=== PATIENT | male | born 1965 | race Caucasian/White ===

== ENCOUNTER 2018-06-05 08:59 | Inpatient (IN) | payer OTHER ==
[2018-06-05 09:22] VITALS: BMI 36.6
--- NOTE | 2018-06-05 10:27 | HP ---
CIWA Score Nausea/Vomitin Muscle Tremors: 5 Anxiety: 3 Agitation: 0-Normal Activity Paroxysmal Sweats: No Perspiration Orientation: 2-Disoriented Date<2 days Tacttile Disturbances: 3-Moderate Itch/Numb/Burn Auditory Disturbances: 0-None Visual Disturbances: 0-None Headache: 4-Moderately Severe CIWA-Ar Total Score: 20 - Admission Criteria OASAS Guidelines: Admission for Medically Managed Detox: Requires at least one of the followin. CIWA greater than 12 2. Seizures within the past 24 hours 3. Delirium tremens within the past 24 hours 4. Hallucinations within the past 24 hours 5. Acute intervention needed for co occurring medical disorder 6. Acute intervention needed for co occurring psychiatric disorder 7. Severe withdrawal that cannot be handled at a lower level of care (continued vomiting, continued diarrhea, abnormal vital signs) requiring intravenous medication and/or fluids 8. Patient presents the following: CIWA greater than 12 Admission Criteria Met: Admission criteria met Admission ROS [facility] - HPI Allergies/Adverse Reactions: Allergies Allergy/AdvReac Type Severity Reaction Status Date / Time No Known Allergies Allergy Verified 06/05/18 10:56 History of Present Illness: patient here requesting detox from etoh use , reports 3 pints /d x 4 months , prior sobriety x 8 mo w/ rastafari assistance , prior same etoh use since age 27 . Prior detox at this facility , rehab at this facility . States that he went to [facility] yesterday , referred here , current symptoms as above . tobacco : denies PMHX : denies PSHx : denies Psych : denies Meds : denies Shx : lives w/ son , on SSI Exam Limitations: No Limitations - Ebola screening Have you traveled outside of the country in the last 21 days: No Have you had contact with anyone from an Ebola affected area: No Have you been sick,other than usual withdrawal symptoms: No Do you have a fever: No - Review of Systems Constitutional: See HPI EENT: reports: Other (reading glasses , denies dysphagia) Respiratory: reports: No Symptoms reported Cardiac: reports: No Symptoms Reported, Other (reports saw cardiology 6 mo ago in [place] , told enlarged heart , no meds) GI: reports: Nausea, Poor Appetite : reports: No Symptoms Reported Musculoskeletal: reports: No Symptoms Reported Integumentary: reports: No Symptoms Reported Neuro: reports: See HPI, Headache Endocrine: reports: No Symptoms Reported Psychiatric: reports: Orientated x3, Anxious Patient History - Patient Medical History Hx Anemia: No Hx Asthma: No Hx Chronic Obstructive Pulmonary Disease (COPD): No Hx Cancer: No Hx Cardiac Disorders: No Hx Congestive Heart Failure: No Hx Hypertension: No Hx Hypercholesterolemia: No Hx Pacemaker: No HX Cerebrovascular Accident: No Hx Seizures: No Hx Dementia: No Hx Diabetes: No Hx Gastrointestinal Disorders: No Hx Liver Disease: No Hx Genitourinary Disorders: No Hx Sexually Transmitted Disorders: No Hx Renal Disease (ESRD): No Hx Thyroid Disease: No Hx Human Immunodeficiency Virus (HIV): No Hx Hepatitis C: No Hx Depression: No Hx Suicide Attempt: No Hx Bipolar Disorder: No Hx Schizophrenia: No - Patient Surgical History Past Surgical History: No Hx Neurologic Surgery: No Hx Cataract Extraction: No Hx Cardiac Surgery: No Hx Lung Surgery: No Hx Breast Surgery: No Hx Breast Biopsy: No Hx Abdominal Surgery: No Hx Appendectomy: No Hx Cholecystectomy: No Hx Genitourinary Surgery: No Hx Section: No Hx Orthopedic Surgery: No Anesthesia Reaction: No - PPD History Date: 04/29/14 Results: 0 mm - Smoking Cessation Smoking history: Current every day smoker Have you smoked in the past 12 months: Yes Aproximately how many cigarettes per day: 2 Hx Chewing Tobacco Use: No Initiated information on smoking cessation: No - Substances Abused Alcohol--vodka/beer Route: Oral Frequency: Daily Amount used: 2-3 pts./1-6 pk. Age of first use: 27 Date of Last Use: 06/04/18 Family Disease History - Family Disease History Family Disease History: Diabetes: Mother (ALCOHOLIC), Other: Grandparent ( ALCOHOLIC, AT 97 Y/O), Father (ALCOHOLIC), Brother (ALCOHOLIC) Admission Physical Exam [facility] - Vital Signs Vital Signs: Vital Signs - 24 hr 06/05/18 09:19 Temperature 97.6 F Pulse Rate 99 H Respiratory 18 Rate Blood Pressure 154/76 - Physical General Appearance: Yes: Moderate Distress, Tremorous, Anxious HEENTM: Yes: EOMI, Normocephalic, Normal Voice, Pharynx Normal, Other (poor dentition) Respiratory: Yes: Chest Non-Tender, Lungs Clear, Normal Breath Sounds Neck: Yes: No masses,lesions,Nodules, Trachea in good position Breast: Yes: Breast Exam Deferred Cardiology: Yes: Regular Rhythm, Regular Rate, S1, S2, Murmur (3/6 left intercostal d/w pt agreeable to f/up upon d/ c from this facility , denies current symptoms), Tachycardia, Diastolic Murmur Abdominal: Yes: Normal Bowel Sounds, Non Tender, Soft, Protuberent Genitourinary: Yes: Within Normal Limits Back: Yes: Normal Inspection Musculoskeletal: Yes: full range of Motion Extremities: Yes: Normal Capillary Refill, Non-Tender, Tremors Neurological: Yes: Alert, Motor Strength 5/5, Normal Mood/Affect Integumentary: Yes: Normal Color, Dry, Warm - Diagnostic (1) Alcohol dependence Current Visit: No Status: Chronic Qualifiers: Substance use status: in withdrawal [facility] Breath Alcohol Content Breath Alcohol Content: 0.057 Urine Drug Screen - Results Drug Screen Negative: No Urine Drug Screen Results: BZO-Benzodiazepines
[2018-06-05] MEDS ORDERED: MAG HYDROX/AL HYDROX/SIMETH 30 ML UNIT-DOSE CUP PO PRN (10:30)
[2018-06-05] MEDS ORDERED: IBUPROFEN 400 MG TABLET (FP) PO PRN (10:30)
[2018-06-05] MEDS ORDERED: MAGNESIUM CITRATE 300 ML BOTTLE PO PRN (10:30)
[2018-06-05] MEDS ORDERED: guaiFENesin/D-METHORPHAN HB 10 ML UNIT-DOSE CUPS PO PRN (10:30)
[2018-06-05] MEDS ORDERED: chlordiazePOXIDE HCL 25 MG CAPSULE PO PRN (10:30)
[2018-06-05] MEDS ORDERED: P-EPHED 60MG/TRIPROLIDI 2.5MG TABLET PO PRN (10:30)
[2018-06-05] MEDS ORDERED: MENTHOL/PHENOL 1 EACH UD MM PRN (10:30)
[2018-06-05] MEDS ORDERED: MAGNESIUM HYDROX 2400MG/30ML ORAL SUSPENSION 30 ML CUP PO PRN (10:30)
[2018-06-05] MEDS: chlordiazePOXIDE HCL 25 MG CAPSULE PO SCH ×2 (12:33→17:42)
[2018-06-05] MEDS: ACETAMINOPHEN 325 MG TABLET (FP) PO PRN (17:42)
[2018-06-06] MEDS: chlordiazePOXIDE HCL 25 MG CAPSULE PO SCH ×5 (00:27→21:59)
[2018-06-06] MEDS: THIAMINE HCL 100 MG TABLET (FP) PO SCH ×2 (00:27→21:59)
[2018-06-06] MEDS: PRENATAL VITAMINS W/ FOLIC ACID TABLET (FP) PO SCH (10:22)
[2018-06-06 10:54] LABS: ALBUMIN 3.6 g/dl (3.4-5.0); ALK PHOS 94 U/L (45-117); ANION GAP 11 MMOL/L (8-16); BILIRUBIN,TOTAL 0.5 mg/dL (0.2-1); BLOOD UREA NITROGEN 9 mg/dL (7-18); CALCIUM 8.3 mg/dL (8.5-10.1); CHLORIDE 105 mmol/L (98-107); CO2 25 mmol/L (21-32); CREATININE 0.7 mg/dL (0.55-1.3); GLUCOSE,RANDOM 75 mg/dL (74-106); POTASSIUM 3.9 mmol/L (3.5-5.1); SGOT/AST 163 U/L (15-37); SGPT/ALT 89 U/L (13-61); SODIUM 140 mmol/L (136-145)
[2018-06-06 11:10] LABS: HEMATOCRIT 28.1 % (35.4-49); MCHC 28.5 g/dl (32.0-35.9); MEAN CELL VOLUME 69.9 fl (80-96); MEAN PLT VOLUME 9.1 fl (7.5-11.1); PLATELET COUNT 230 K/MM3 (134-434); RBC 4.03 M/mm3 (4.00-5.60); RDW 21.9 % (11.9-15.9); WHITE BLOOD COUNT 6.3 K/mm3 (4.0-10.0)
[2018-06-06 11:14] LABS: MCH 19.9 pg (25.7-33.7)
[2018-06-06] MEDS: ACETAMINOPHEN 325 MG TABLET (FP) PO PRN (17:38)
--- NOTE | 2018-06-06 17:45 | PN ---
S CIWA - CIWA Score Nausea/Vomitin Muscle Tremors: 3 Anxiety: 3 Agitation: 2 Paroxysmal Sweats: 3 Orientation: 0-Oriented Tacttile Disturbances: 0-None Auditory Disturbances: 0-None Visual Disturbances: 0-None Headache: 0-None Present CIWA-Ar Total Score: 14 S Progress Note (SOAP) Subjective: Nausea shakes Objective: 06/06/18 17:44 A & O x 3 steady gait anxious Vital Signs Temperature 99.3 F 06/06/18 17:09 Pulse Rate 95 H 06/06/18 17:09 Respiratory Rate 16 06/06/18 17:09 Blood Pressure 131/79 06/06/18 17:09 O2 Sat by Pulse Oximetry (%) Laboratory Last Values WBC 6.3 K/mm3 (4.0-10.0) 06/06/18 05:40 RBC 4.03 M/mm3 (4.00-5.60) 06/06/18 05:40 Hgb 8.0 GM/dL (11.7-16.9) L 06/06/18 05:40 Hct 28.1 % (35.4-49) L D 06/06/18 05:40 MCV 69.9 fl (80-96) L 06/06/18 05:40 MCH 19.9 pg (25.7-33.7) L D 06/06/18 05:40 MCHC 28.5 g/dl (32.0-35.9) L 06/06/18 05:40 RDW 21.9 % (11.9-15.9) H 06/06/18 05:40 Plt Count 230 K/MM3 (134-434) 06/06/18 05:40 MPV 9.1 fl (7.5-11.1) 06/06/18 05:40 Sodium 140 mmol/L (136-145) 06/06/18 05:40 Potassium 3.9 mmol/L (3.5-5.1) 06/06/18 05:40 Chloride 105 mmol/L (98-107) 06/06/18 05:40 Carbon Dioxide 25 mmol/L (21-32) 06/06/18 05:40 Anion Gap 11 MMOL/L (8-16) 06/06/18 05:40 BUN 9 mg/dL (7-18) 06/06/18 05:40 Creatinine 0.7 mg/dL (0.55-1.3) 06/06/18 05:40 Creat Clearance w eGFR > 60 (>60) 06/06/18 05:40 Random Glucose 75 mg/dL (74-106) 06/06/18 05:40 Calcium 8.3 mg/dL (8.5-10.1) L 06/06/18 05:40 Total Bilirubin 0.5 mg/dL (0.2-1) 06/06/18 05:40 AST 163 U/L (15-37) H 06/06/18 05:40 ALT 89 U/L (13-61) H 06/06/18 05:40 Alkaline Phosphatase 94 U/L (45-117) 06/06/18 05:40 Total Protein 7.0 g/dl (6.4-8.2) 06/06/18 05:40 Albumin 3.6 g/dl (3.4-5.0) 06/06/18 05:40 labs noted low H & H Assessment: 06/06/18 17:45 withdrawal sx Plan: continue detox increase hydration Feosol
[2018-06-06] MEDS: MELATONIN 5 MG TABLETS PO PRN (21:48)
[2018-06-07] MEDS: chlordiazePOXIDE HCL 25 MG CAPSULE PO SCH (05:37)
[2018-06-07] MEDS: FERROUS SO4 325 MG TABLET (FP) PO SCH ×2 (08:57→17:53)
[2018-06-07] MEDS: chlordiazePOXIDE 5 MG CAPSULE PO SCH ×3 (10:13→22:38)
[2018-06-07] MEDS: PRENATAL VITAMINS W/ FOLIC ACID TABLET (FP) PO SCH (10:13)
--- NOTE | 2018-06-07 13:03 | PN ---
S CIWA - CIWA Score Nausea/Vomitin-No Nausea/No Vomiting Muscle Tremors: 3 Anxiety: 1-Mildly Anxious Agitation: 2 Paroxysmal Sweats: 1-Minimal Palms Moist Orientation: 1-Uncertain about Date Tacttile Disturbances: 0-None Auditory Disturbances: 0-None Visual Disturbances: 0-None Headache: 2-Mild CIWA-Ar Total Score: 10 S Progress Note (SOAP) Subjective: anxiety tremor sweating Objective: 06/07/18 13:01 Vital Signs Temperature 98.2 F 06/07/18 09:43 Pulse Rate 100 H 06/07/18 09:43 Respiratory Rate 18 06/07/18 09:43 Blood Pressure 132/91 06/07/18 09:43 O2 Sat by Pulse Oximetry (%) Laboratory Last Values WBC 6.3 K/mm3 (4.0-10.0) 06/06/18 05:40 RBC 4.03 M/mm3 (4.00-5.60) 06/06/18 05:40 Hgb 8.0 GM/dL (11.7-16.9) L 06/06/18 05:40 Hct 28.1 % (35.4-49) L D 06/06/18 05:40 MCV 69.9 fl (80-96) L 06/06/18 05:40 MCH 19.9 pg (25.7-33.7) L D 06/06/18 05:40 MCHC 28.5 g/dl (32.0-35.9) L 06/06/18 05:40 RDW 21.9 % (11.9-15.9) H 06/06/18 05:40 Plt Count 230 K/MM3 (134-434) 06/06/18 05:40 MPV 9.1 fl (7.5-11.1) 06/06/18 05:40 Sodium 140 mmol/L (136-145) 06/06/18 05:40 Potassium 3.9 mmol/L (3.5-5.1) 06/06/18 05:40 Chloride 105 mmol/L (98-107) 06/06/18 05:40 Carbon Dioxide 25 mmol/L (21-32) 06/06/18 05:40 Anion Gap 11 MMOL/L (8-16) 06/06/18 05:40 BUN 9 mg/dL (7-18) 06/06/18 05:40 Creatinine 0.7 mg/dL (0.55-1.3) 06/06/18 05:40 Creat Clearance w eGFR > 60 (>60) 06/06/18 05:40 Random Glucose 75 mg/dL (74-106) 06/06/18 05:40 Calcium 8.3 mg/dL (8.5-10.1) L 06/06/18 05:40 Total Bilirubin 0.5 mg/dL (0.2-1) 06/06/18 05:40 AST 163 U/L (15-37) H 06/06/18 05:40 ALT 89 U/L (13-61) H 06/06/18 05:40 Alkaline Phosphatase 94 U/L (45-117) 06/06/18 05:40 Total Protein 7.0 g/dl (6.4-8.2) 06/06/18 05:40 Albumin 3.6 g/dl (3.4-5.0) 06/06/18 05:40 RPR Titer Nonreactive (NONREACTIVE) 06/06/18 05:40 lab noted low hgb Assessment: 06/07/18 13:02 alcohol and benzo withdrawal sx 06/07/18 13:03 anemia Plan: continue detox ferrous sulfate
[2018-06-07] MEDS: THIAMINE HCL 100 MG TABLET (FP) PO SCH (22:38)
[2018-06-08] MEDS: chlordiazePOXIDE 5 MG CAPSULE PO SCH (06:29)
[2018-06-08] MEDS: FERROUS SO4 325 MG TABLET (FP) PO SCH ×2 (07:06→17:37)
[2018-06-08] MEDS: PRENATAL VITAMINS W/ FOLIC ACID TABLET (FP) PO SCH (10:10)
[2018-06-08] MEDS: chlordiazePOXIDE HCL 10 MG CAPSULE PO SCH ×3 (10:11→22:10)
[2018-06-08] MEDS ORDERED: ONDANSETRON *ODT* 4 MG TABLET SL PRN (10:33)
--- NOTE | 2018-06-08 15:24 | PN ---
[facility] Progress Note (SOAP) Subjective: Tremors. Patient Reports Pain (Localized) in Lower Heel area of Left Ankle X Last 1-2 days. Patient denies history of recent fall / traumatic injury to affected area. Objective: PATIENT A & O X 2 (UNCERTAIN ABOUT CURRENT DAY / DATE). PATIENT OBSERVED AMBULATING ON UNIT. IN NO ACUTE DISTRESS. SLIGHT SWELLING NOTED IN AREA OF LEFT HEEL (ON SOLE OF FOOT). NO ERYTHEMA, WOUNDS, OR UNUSUAL DISCHARGE NOTED AT AFFECTED SITE OR ON ANY OTHER PART OF LEFT LOWER LEG OR FOOT. 06/08/18 15:20 Vital Signs Temperature 96.6 F L 06/08/18 13:27 Pulse Rate 91 H 06/08/18 13:27 Respiratory Rate 18 06/08/18 13:27 Blood Pressure 110/74 06/08/18 13:27 O2 Sat by Pulse Oximetry (%) Laboratory Tests 06/06/18 06/06/18 06/06/18 05:40 05:40 05:40 WBC 6.3 RBC 4.03 Hgb 8.0 L Hct 28.1 L D MCV 69.9 L MCH 19.9 L D MCHC 28.5 L RDW 21.9 H Plt Count 230 MPV 9.1 Sodium 140 Potassium 3.9 Chloride 105 Carbon Dioxide 25 Anion Gap 11 BUN 9 Creatinine 0.7 Creat Clearance w eGFR > 60 Random Glucose 75 Calcium 8.3 L Total Bilirubin 0.5 AST 163 H ALT 89 H Alkaline Phosphatase 94 Total Protein 7.0 Albumin 3.6 RPR Titer Nonreactive LABS NOTED. 06/08/18 15:21 Assessment: 06/08/18 15:23 WITHDRAWAL SYMPTOMS. MICROCYTIC ANEMIA. LEFT HEEL PAIN. 06/08/18 15:25 Plan: CONTINUE DETOX. NAPROXEN BID FOR HEEL PAIN. X-RAY OF LEFT FOOT / ANKLE ORDERED. RESULTS PENDING.
--- NOTE | 2018-06-08 16:56 | PN ---
[facility] Progress Note Note: PATIENT SCHEDULED TO LEAVE TOMORROW @ 0630 TO GET TO [facility] ( [place], [place]) FOR AFTERCARE. AT THIS TIME, REPORT FOR X-RAY OF LEFT ANKLE NOT YET AVAILABLE. PATIENT ADVISED TO INQUIRE LATER ON IN EVENING TO SPEAK TO COVERING MEDICAL PROVIDER TO SEE IF REPORT IS AVAILABLE AT THAT TIME. IF REPORT NOT AVAILABLE PRIOR TO DISCHARGE TOMORROW AM, PATIENT ADVISED TO FOLLOW-UP WITH MEDICAL PROVIDER AT [facility] (IF POSSIBLE) OR ELSE FOLLOW-UP WITH TUMBLER TENDER FOR FURTHER EVALUATION WHEN POSSIBLE. PRESCRIPTION FOR FEOSOL, 325 MG BIDWM SENT TO [facility] ([address], [place]) FOR PATIENT TO TAKE FOR AFTERCARE ( MICROCYTIC ANEMIA NOTED ON DETOX ADMISSION LABS). PATIENT ALSO ADVISED TO FOLLOW -UP WITH TUMBLER TENDER FOR FURTHER EVALUATION OF THIS CONDITION WHEN POSSIBLE. PATIENT VERBALIZED UNDERSTANDING OF ALL RECOMMENDATIONS. COPIES OF ALL LABS DRAWN WHILE ADMITTED FOR DETOX GIVEN TO PATIENT TO TAKE WITH HIM AT TIME OF DISCHARGE FOR FOLLOW-UP. Page WESTON NP
[2018-06-08] MEDS: ACETAMINOPHEN 325 MG TABLET (FP) PO PRN (17:38)
[2018-06-08] MEDS ORDERED: NAPROXEN 375 MG TABLET (FP) PO SCH (22:00)
[2018-06-08] MEDS: MELATONIN 5 MG TABLETS PO PRN (22:10)
[2018-06-08] MEDS: THIAMINE HCL 100 MG TABLET (FP) PO SCH (22:10)
[2018-06-08 22:15] VITALS: BP 132/86; PULSE 80; TEMP 97.9
[2018-06-09] MEDS: chlordiazePOXIDE HCL 10 MG CAPSULE PO SCH (06:09)
== END 2018-06-09 06:30 | disposition home or self-care (01) | DRG 897 ==
LOC: YASAS 08:59 → Y6N 11:27
PROC: HZ2ZZZZ Detoxification Services for Substance Abuse Treatment (ICD-10-PCS; principal; 2018-06-05)
DX: F10.230 Alcohol dependence with withdrawal, uncomplicated (principal); F13.230 Sedative, hypnotic or anxiolytic dependence with withdrawal, uncomplicated; F17.210 Nicotine dependence, cigarettes, uncomplicated; D64.9 Anemia, unspecified; M79.672 Pain in left foot
CPT/HCPCS: 36415; 73630-TC-LT; 80053; 85027; 86593

== ENCOUNTER 2019-06-04 16:40 | Inpatient (IN) | payer OTHER ==
[2019-06-04 18:46] VITALS: BMI 33.9
--- NOTE | 2019-06-04 20:00 | HP ---
CIWA Score Nausea/Vomitin-No Nausea/No Vomiting Muscle Tremors: 4-Moderate,w/Arms Extend Anxiety: 3 Agitation: 0-Normal Activity Paroxysmal Sweats: No Perspiration Orientation: 0-Oriented Tacttile Disturbances: 0-None Auditory Disturbances: 0-None Visual Disturbances: 0-None Headache: 0-None Present CIWA-Ar Total Score: 7 - Admission Criteria OASAS Guidelines: Admission for Medically Managed Detox: Requires at least one of the followin. CIWA greater than 12 2. Seizures within the past 24 hours 3. Delirium tremens within the past 24 hours 4. Hallucinations within the past 24 hours 5. Acute intervention needed for co occurring medical disorder 6. Acute intervention needed for co occurring psychiatric disorder 7. Severe withdrawal that cannot be handled at a lower level of care (continued vomiting, continued diarrhea, abnormal vital signs) requiring intravenous medication and/or fluids 8. Patient presents the following: Acute intervention needed for co-occurring med or psych disorder (transferred from [facility] afterbeing stablized for alcohol use with alcohol-nduced psychotic isorder with hallucinations) Admission Criteria Met: Admission criteria met Admitting History and Physical - Smoking History Smoking history: Current every day smoker Have you smoked in the past 12 months: Yes Aproximately how many cigarettes per day: 2 - Alcohol/Substance Use Hx Alcohol Use: Yes Admission ROS S - HPI Chief Complaint: Seeking admission to detox from alcohol Allergies/Adverse Reactions: Allergies Allergy/AdvReac Type Severity Reaction Status Date / Time No Known Allergies Allergy Verified 06/04/19 18:40 History of Present Illness: 54 years old male with a long history of alcohol dependence is seeking admission to detox. Patient denies medical history and reports psych. history of schizophrenia and alcohol induced psychotic disorder with hallucinations as per discharge instruction from [facility]. Patient was stabilized and transferred from [facility]. Patient's last admission to [facility] was for the period 05/26/2009. He reports that his last admission was at [facility]. He is unemployed and lives with his son. Exam Limitations: No Limitations - Ebola screening Have you traveled outside of the country in the last 21 days: No Have you had contact with anyone from an Ebola affected area: No Do you have a fever: No - Review of Systems Constitutional: Malaise EENT: reports: Nose Congestion Respiratory: reports: No Symptoms reported Cardiac: reports: No Symptoms Reported GI: reports: Nausea, Poor Fluid Intake, Abdominal cramping : reports: No Symptoms Reported Musculoskeletal: reports: No Symptoms Reported Integumentary: reports: Dryness, Flushing Neuro: reports: Tremors Endocrine: reports: No Symptoms Reported Hematology: reports: No Symptoms Reported Psychiatric: reports: Orientated x3, Anxious Other Systems: Reviewed and Negative Patient History - Patient Medical History Hx Anemia: No Hx Asthma: No Hx Chronic Obstructive Pulmonary Disease (COPD): No Hx Cancer: No Hx Cardiac Disorders: No Hx Congestive Heart Failure: No Hx Hypertension: No Hx Hypercholesterolemia: No Hx Pacemaker: No HX Cerebrovascular Accident: No Hx Seizures: No Hx Dementia: No Hx Diabetes: No Hx Gastrointestinal Disorders: No Hx Liver Disease: No Hx Genitourinary Disorders: No Hx Sexually Transmitted Disorders: No Hx Renal Disease (ESRD): No Hx Thyroid Disease: No Hx Human Immunodeficiency Virus (HIV): No (Negative 2018) Hx Hepatitis C: No Hx Depression: Yes Hx Suicide Attempt: No (Denies suicidal ideation at thi time) Hx Bipolar Disorder: No Hx Schizophrenia: Yes - Patient Surgical History Past Surgical History: No Hx Neurologic Surgery: No Hx Cataract Extraction: No Hx Cardiac Surgery: No Hx Lung Surgery: No Hx Abdominal Surgery: No Hx Appendectomy: No Hx Cholecystectomy: No Hx Genitourinary Surgery: No Hx Orthopedic Surgery: No Anesthesia Reaction: No - PPD History Previous Implant?: Yes Documented Results: Negative w/proof Implanted On Prior [facility] Admission?: Yes Date: 04/29/14 Results: 0 mm PPD to be Administered?: Yes - Reproductive History Patient is a Female of Child Bearing Age (11 -55 yrs old): No (male) - Smoking Cessation Smoking history: Current every day smoker Have you smoked in the past 12 months: Yes Aproximately how many cigarettes per day: 2 Hx Chewing Tobacco Use: No Initiated information on smoking cessation: Yes 'Breaking Loose' booklet given: 06/04/19 Admission Physical Exam [facility] - Vital Signs Vital Signs: Vital Signs - 24 hr 06/04/19 18:39 Temperature 99.9 F H Pulse Rate 88 Respiratory 20 Rate Blood Pressure 146/84 - Physical General Appearance: Yes: Mild Distress, Tremorous HEENTM: Yes: Within Normal Limits Respiratory: Yes: Lungs Clear, Normal Breath Sounds, No Respiratory Distress Neck: Yes: Supple Breast: Yes: Breast Exam Deferred Cardiology: Yes: Regular Rhythm, Regular Rate Abdominal: Yes: Normal Bowel Sounds, Soft Back: Yes: Normal Inspection Musculoskeletal: Yes: Within Normal Limits Extremities: Yes: Tremors Neurological: Yes: Within Normal Limits Integumentary: Yes: Warm Lymphatic: Yes: Within Normal Limits - Diagnostic (1) Alcohol dependence with withdrawal, unspecified Current Visit: Yes Status: Acute Qualifiers: Complication of substance-induced condition: with perceptual disturbance Qualified Code(s): F10.232 - Alcohol dependence with withdrawal with perceptual disturbance (2) Nicotine dependence Current Visit: Yes Status: Chronic Qualifiers: Nicotine product type: cigarettes Substance use status: uncomplicated Qualified Code(s): F17.210 - Nicotine dependence, cigarettes, uncomplicated Cleared for Admission S - Detox or Rehab [facility] Level of Care: Medically Managed Detox Regimen/Protocol: Librium Claeared for Rehab Admission: No Breathalyzer - Breathalyzer Breathalyzer: 0 Urine Drug Screen - Test Device Lot number: [id number] Expiration date: 12/22/20 - Control Is test valid?: Yes - Results Drug screen NEGATIVE: No Urine drug screen results: BZO-Benzodiazepines Inpatient Rehab Admission - Rehab Decision to Admit Inpatient rehab admission?: No
[2019-06-04] MEDS ORDERED: NICOTINE POLACRILEX 2 MG GUM BUC PRN (20:19)
[2019-06-04] MEDS ORDERED: MAGNESIUM HYDROX 2400MG/30ML ORAL SUSPENSION 30 ML CUP PO PRN (20:19)
[2019-06-04] MEDS ORDERED: IBUPROFEN 400 MG TABLET (FP) PO PRN (20:19)
[2019-06-04] MEDS ORDERED: chlordiazePOXIDE HCL 10 MG CAPSULE PO PRN (20:19)
[2019-06-04] MEDS ORDERED: MENTHOL/PHENOL 1 EACH UD MM PRN (20:19)
[2019-06-04] MEDS ORDERED: METHOCARBAMOL 500 MG TABLET PO PRN (20:19)
[2019-06-04] MEDS ORDERED: BISMUTH SUBSALICYLATE 524 MG/30 ML UD PO PRN (20:19)
[2019-06-04] MEDS ORDERED: hydrOXYzine PAMOATE 25 MG CAPSULE (FP) PO PRN (20:19)
[2019-06-04] MEDS ORDERED: ACETAMINOPHEN 325 MG TABLET (FP) PO PRN ×2 (20:19)
[2019-06-04] MEDS ORDERED: MAGNESIUM CITRATE 300 ML BOTTLE PO PRN (20:19)
[2019-06-04] MEDS ORDERED: MAG HYDROX/AL HYDROX/SIMETH 30 ML UNIT-DOSE CUP PO PRN (20:19)
[2019-06-04] MEDS: THIAMINE HCL 100 MG TABLET (FP) PO SCH (22:21)
[2019-06-04] MEDS: chlordiazePOXIDE HCL 25 MG CAPSULE PO SCH (22:23)
[2019-06-04] MEDS: MELATONIN 5 MG TABLETS PO PRN (22:24)
[2019-06-05] MEDS: chlordiazePOXIDE HCL 25 MG CAPSULE PO SCH ×3 (06:17→22:08)
--- NOTE | 2019-06-05 09:01 | EKG ---
Test Reason : Blood Pressure : / mmHG Vent. Rate : 076 BPM Atrial Rate : 076 BPM P-R Int : 168 ms QRS Dur : 074 ms QT Int : 392 ms P-R-T Axes : 043 019 027 degrees QTc Int : 441 ms POOR DATA QUALITY, INTERPRETATION MAY BE ADVERSELY AFFECTED NORMAL SINUS RHYTHM NORMAL ECG NO PREVIOUS ECGS AVAILABLE Confirmed by VERNA HUDSON MD ([id number]) on 06/05/2019 9:00:43 AM Referred By: Confirmed By:VERNA HUDSON MD
[2019-06-05 09:54] LABS: HEMATOCRIT 38.4 % (35.4-49); HEMOGLOBIN 12.4 GM/dL (11.7-16.9); MCH 31.5 pg (25.7-33.7); MCHC 32.4 g/dl (32.0-35.9); MEAN CELL VOLUME 97.2 fl (80-96); PLATELET COUNT 234 K/MM3 (134-434); RBC 3.95 M/mm3 (4.00-5.60); RDW 14.6 % (11.9-15.9); WHITE BLOOD COUNT 9.3 K/mm3 (4.0-10.0)
[2019-06-05 10:05] LABS: ALBUMIN 3.1 g/dl (3.4-5.0); BILIRUBIN,TOTAL 0.8 mg/dL (0.2-1); BLOOD UREA NITROGEN 15.5 mg/dL (7-18); CALCIUM 8.6 mg/dL (8.5-10.1); CREATININE 0.8 mg/dL (0.55-1.3); POTASSIUM 3.5 mmol/L (3.5-5.1); TOT PROT 6.5 g/dl (6.4-8.2)
[2019-06-05] MEDS: PRENATAL VITAMINS W/ FOLIC ACID TABLET (FP) PO SCH (10:10)
[2019-06-05] MEDS: NICOTINE 14 MG/24 HOURS TOPICAL PATCH TD SCH (10:10)
--- NOTE | 2019-06-05 10:15 | PN ---
S CIWA - CIWA Score Nausea/Vomitin-No Nausea/No Vomiting Muscle Tremors: 3 Anxiety: 3 Agitation: 0-Normal Activity Paroxysmal Sweats: 3 Orientation: 0-Oriented Tacttile Disturbances: 0-None Auditory Disturbances: 0-None Visual Disturbances: 0-None Headache: 2-Mild CIWA-Ar Total Score: 11 B[facility] Progress Note (SOAP) Subjective: c/o shakes, sweats, anxiety, and headache. Objective: 06/05/19 10:14 Vital Signs 06/05/19 06/05/19 06/05/19 04:00 06:37 09:26 Temperature 97.6 F 98.2 F Pulse Rate 69 112 H Respiratory 18 18 18 Rate Blood Pressure 145/88 137/82 Lab Results WBC 9.3 K/mm3 (4.0-10.0) 06/05/19 07:15 RBC 3.95 M/mm3 (4.00-5.60) L 06/05/19 07:15 Hgb 12.4 GM/dL (11.7-16.9) 06/05/19 07:15 Hct 38.4 % (35.4-49) D 06/05/19 07:15 MCV 97.2 fl (80-96) H 06/05/19 07:15 MCHC 32.4 g/dl (32.0-35.9) 06/05/19 07:15 RDW 14.6 % (11.9-15.9) D 06/05/19 07:15 Plt Count 234 K/MM3 (134-434) 06/05/19 07:15 Sodium 140 mmol/L (136-145) 06/05/19 07:15 Potassium 3.5 mmol/L (3.5-5.1) 06/05/19 07:15 Chloride 104 mmol/L (98-107) 06/05/19 07:15 Carbon Dioxide 31 mmol/L (21-32) 06/05/19 07:15 Anion Gap 5 MMOL/L (8-16) L 06/05/19 07:15 BUN 15.5 mg/dL (7-18) 06/05/19 07:15 Creatinine 0.8 mg/dL (0.55-1.3) 06/05/19 07:15 Random Glucose 79 mg/dL (74-106) 06/05/19 07:15 Calcium 8.6 mg/dL (8.5-10.1) 06/05/19 07:15 Labs noted. Assessment: 06/05/19 10:15 AOX3, in no acute respiratory distress. Full ROM, ambulating in the unit. Withdrawal symptoms. Plan: continue detox.
--- NOTE | 2019-06-05 11:26 | EKG ---
Test Reason : Blood Pressure : / mmHG Vent. Rate : 074 BPM Atrial Rate : 074 BPM P-R Int : 150 ms QRS Dur : 088 ms QT Int : 386 ms P-R-T Axes : 054 029 018 degrees QTc Int : 428 ms NORMAL SINUS RHYTHM NORMAL ECG WHEN COMPARED WITH ECG OF 04-JUN-2019 20:47, NO SIGNIFICANT CHANGE WAS FOUND Confirmed by VERNA HUDSON MD ([id number]) on 06/05/2019 11:25:43 AM Referred By: Confirmed By:VERNA HUDSON MD
--- NOTE | 2019-06-05 11:29 | CONSULT ---
[facility] Psychiatric Consult - Data Date of interview: 06/05/19 Admission source: [facility] Identifying data: Patient is a 54 year old single [place] male, father of two, unemployed, domiciled (resides with his oldest son), and is supported by [facility]. This is one of multiple admissions for patient. Patient admitted to for alcohol dependence. Substance Abuse History: History of alcohol dependence. Medical History: denies. Psychiatric History: Patient's first psychiatric contact was approximately six years ago after he was admitted to [facility] for two months after reporting auditory and visual hallucinations secondary to alcohol dependence. Mr. Nguyen reports history of seeing multiple outpatient psychiatric providers in the [place] but admits to noncompliance with medications. Patient only recalls the medication zoloft although states that he has been prescribed several medications. States that he has history of experiencing psychotic symptoms (AH, VH) due to his alcohol abuse but has been diagnosed with schizophrenia in the past. Mr. Nguyen was discharged from [facility] on 06/03/19 and diagnosed with alcohol induced psychotic disorder with hallucinations (paperwork from [facility] reviewed). He denies history of suicide attempt. At present he denies auditory/visual hallucinations. No psychosis noted. Patient not interested in accepting psychotropic medications. Physical/Sexual Abuse/Trauma History: denies. Mental Status Exam - Mental Status Exam Alert and Oriented to: Time, Place, Person Cognitive Function: Good Patient Appearance: Well Groomed Mood: Withdrawn Affect: Mood Congruent Patient Behavior: Fatigued Speech Pattern: Appropriate (Bahamian speaking) Voice Loudness: Moderately Soft/Quiet Thought Process: Goal Oriented Thought Disorder: Not Present Hallucinations: Denies Suicidal Ideation: Denies Homicidal Ideation: Denies Insight/Judgement: Poor Sleep: Fair Appetite: Fair Muscle strength/Tone: Normal Gait/Station: Normal Psychiatric Findings - Problem List ([place] 1, 2,3) (1) Alcohol dependence with withdrawal, unspecified Current Visit: Yes Status: Acute Qualifiers: Complication of substance-induced condition: with perceptual disturbance Qualified Code(s): F10.232 - Alcohol dependence with withdrawal with perceptual disturbance (2) Alcohol dependence Current Visit: Yes Status: Chronic Qualifiers: Substance use status: in withdrawal (3) Alcohol-induced psychotic disorder with hallucinations Current Visit: No Status: Resolved Comment: History of alcohol induced psychosis (4) Schizophrenia Current Visit: No Status: Suspected - Initial Treatment Plan Initial Treatment Plan: Psychoeducation provided. Detoxification in progress. Observation.
[2019-06-05] MEDS: THIAMINE HCL 100 MG TABLET (FP) PO SCH (22:08)
[2019-06-05] MEDS: MELATONIN 5 MG TABLETS PO PRN (22:08)
[2019-06-06] MEDS: chlordiazePOXIDE 5 MG CAPSULE PO SCH ×3 (05:26→22:01)
[2019-06-06] MEDS: PRENATAL VITAMINS W/ FOLIC ACID TABLET (FP) PO SCH (10:05)
[2019-06-06] MEDS: NICOTINE 14 MG/24 HOURS TOPICAL PATCH TD SCH (10:06)
--- NOTE | 2019-06-06 15:02 | PN ---
S CIWA - CIWA Score Nausea/Vomitin-No Nausea/No Vomiting Muscle Tremors: 2 Anxiety: 2 Agitation: 2 Paroxysmal Sweats: 1-Minimal Palms Moist Orientation: 0-Oriented Tacttile Disturbances: 0-None Auditory Disturbances: 0-None Visual Disturbances: 0-None Headache: 1-Very Mild CIWA-Ar Total Score: 8 BHS Progress Note (SOAP) Subjective: 54 years old male admitted on 06/04/19 for alcohol withdrawal sx management treating with librium detox regimen feeling ok today resting on bed limited conversation with staff Objective: 06/06/19 15:00 Vital Signs Temperature 98.8 F 06/06/19 13:37 Pulse Rate 79 06/06/19 13:37 Respiratory Rate 18 06/06/19 13:37 Blood Pressure 128/84 06/06/19 13:37 O2 Sat by Pulse Oximetry (%) Laboratory Last Values WBC 9.3 K/mm3 (4.0-10.0) 06/05/19 07:15 RBC 3.95 M/mm3 (4.00-5.60) L 06/05/19 07:15 Hgb 12.4 GM/dL (11.7-16.9) 06/05/19 07:15 Hct 38.4 % (35.4-49) D 06/05/19 07:15 MCV 97.2 fl (80-96) H 06/05/19 07:15 MCH 31.5 pg (25.7-33.7) D 06/05/19 07:15 MCHC 32.4 g/dl (32.0-35.9) 06/05/19 07:15 RDW 14.6 % (11.9-15.9) D 06/05/19 07:15 Plt Count 234 K/MM3 (134-434) 06/05/19 07:15 MPV 9.0 fl (7.5-11.1) 06/05/19 07:15 Sodium 140 mmol/L (136-145) 06/05/19 07:15 Potassium 3.5 mmol/L (3.5-5.1) 06/05/19 07:15 Chloride 104 mmol/L (98-107) 06/05/19 07:15 Carbon Dioxide 31 mmol/L (21-32) 06/05/19 07:15 Anion Gap 5 MMOL/L (8-16) L 06/05/19 07:15 BUN 15.5 mg/dL (7-18) 06/05/19 07:15 Creatinine 0.8 mg/dL (0.55-1.3) 06/05/19 07:15 Est GFR (CKD-EPI)AfAm 118.20 06/05/19 07:15 Est GFR (CKD-EPI)NonAf 101.99 06/05/19 07:15 Random Glucose 79 mg/dL (74-106) 06/05/19 07:15 Calcium 8.6 mg/dL (8.5-10.1) 06/05/19 07:15 Total Bilirubin 0.8 mg/dL (0.2-1) 06/05/19 07:15 AST 53 U/L (15-37) H 06/05/19 07:15 ALT 42 U/L (13-61) 06/05/19 07:15 Alkaline Phosphatase 99 U/L (45-117) 06/05/19 07:15 Total Protein 6.5 g/dl (6.4-8.2) 06/05/19 07:15 Albumin 3.1 g/dl (3.4-5.0) L 06/05/19 07:15 RPR Titer Nonreactive (NONREACTIVE) 06/05/19 07:15 lab noted Assessment: 06/06/19 15:02 alcohol withdrawal Plan: librium regimen
[2019-06-06] MEDS: MELATONIN 5 MG TABLETS PO PRN (22:01)
[2019-06-06] MEDS: THIAMINE HCL 100 MG TABLET (FP) PO SCH (22:01)
[2019-06-07] MEDS ORDERED: chlordiazePOXIDE HCL 10 MG CAPSULE PO PRN
[2019-06-07] MEDS: chlordiazePOXIDE HCL 10 MG CAPSULE PO SCH ×3 (05:05→21:47)
--- NOTE | 2019-06-07 09:28 | PN ---
[facility] CIWA - CIWA Score Nausea/Vomitin-No Nausea/No Vomiting Muscle Tremors: None Anxiety: 3 Agitation: 0-Normal Activity Paroxysmal Sweats: 1-Minimal Palms Moist Orientation: 0-Oriented Tacttile Disturbances: 0-None Auditory Disturbances: 0-None Visual Disturbances: 0-None Headache: 0-None Present CIWA-Ar Total Score: 4 S Progress Note (SOAP) Subjective: 54 years old male admitted on 06/04/19 for alcohol withdrawal sx management treated with librium detox regimen feeling better today less tremor slept through the night encourage to attend behavior and psychosocial therapies while in the detox Objective: 06/07/19 09:32 Vital Signs Temperature 97.0 F L 06/07/19 09:14 Pulse Rate 76 06/07/19 09:14 Respiratory Rate 16 06/07/19 09:14 Blood Pressure 134/89 06/07/19 09:14 O2 Sat by Pulse Oximetry (%) Laboratory Last Values WBC 9.3 K/mm3 (4.0-10.0) 06/05/19 07:15 RBC 3.95 M/mm3 (4.00-5.60) L 06/05/19 07:15 Hgb 12.4 GM/dL (11.7-16.9) 06/05/19 07:15 Hct 38.4 % (35.4-49) D 06/05/19 07:15 MCV 97.2 fl (80-96) H 06/05/19 07:15 MCH 31.5 pg (25.7-33.7) D 06/05/19 07:15 MCHC 32.4 g/dl (32.0-35.9) 06/05/19 07:15 RDW 14.6 % (11.9-15.9) D 06/05/19 07:15 Plt Count 234 K/MM3 (134-434) 06/05/19 07:15 MPV 9.0 fl (7.5-11.1) 06/05/19 07:15 Sodium 140 mmol/L (136-145) 06/05/19 07:15 Potassium 3.5 mmol/L (3.5-5.1) 06/05/19 07:15 Chloride 104 mmol/L (98-107) 06/05/19 07:15 Carbon Dioxide 31 mmol/L (21-32) 06/05/19 07:15 Anion Gap 5 MMOL/L (8-16) L 06/05/19 07:15 BUN 15.5 mg/dL (7-18) 06/05/19 07:15 Creatinine 0.8 mg/dL (0.55-1.3) 06/05/19 07:15 Est GFR (CKD-EPI)AfAm 118.20 06/05/19 07:15 Est GFR (CKD-EPI)NonAf 101.99 06/05/19 07:15 Random Glucose 79 mg/dL (74-106) 06/05/19 07:15 Calcium 8.6 mg/dL (8.5-10.1) 06/05/19 07:15 Total Bilirubin 0.8 mg/dL (0.2-1) 06/05/19 07:15 AST 53 U/L (15-37) H 06/05/19 07:15 ALT 42 U/L (13-61) 06/05/19 07:15 Alkaline Phosphatase 99 U/L (45-117) 06/05/19 07:15 Total Protein 6.5 g/dl (6.4-8.2) 06/05/19 07:15 Albumin 3.1 g/dl (3.4-5.0) L 06/05/19 07:15 RPR Titer Nonreactive (NONREACTIVE) 06/05/19 07:15 lab noted Assessment: 06/07/19 09:35 alcohol withdrawal Plan: librium regimen
[2019-06-07] MEDS: PRENATAL VITAMINS W/ FOLIC ACID TABLET (FP) PO SCH (10:05)
[2019-06-07] MEDS: NICOTINE 14 MG/24 HOURS TOPICAL PATCH TD SCH (10:05)
--- NOTE | 2019-06-07 12:23 | HP ---
CIWA Score Nausea/Vomitin-No Nausea/No Vomiting Muscle Tremors: None Anxiety: 3 Agitation: 0-Normal Activity Paroxysmal Sweats: 1-Minimal Palms Moist Orientation: 0-Oriented Tacttile Disturbances: 0-None Auditory Disturbances: 0-None Visual Disturbances: 0-None Headache: 0-None Present CIWA-Ar Total Score: 4 - Admission Criteria [facility]ASAS Guidelines: Admission for Medically Managed Detox: Requires at least one of the followin. CIWA greater than 12 2. Seizures within the past 24 hours 3. Delirium tremens within the past 24 hours 4. Hallucinations within the past 24 hours 5. Acute intervention needed for co occurring medical disorder 6. Acute intervention needed for co occurring psychiatric disorder 7. Severe withdrawal that cannot be handled at a lower level of care (continued vomiting, continued diarrhea, abnormal vital signs) requiring intravenous medication and/or fluids 8. Admitting History and Physical - Smoking History Smoking history: Current every day smoker Have you smoked in the past 12 months: Yes Aproximately how many cigarettes per day: 2 - Alcohol/Substance Use Hx Alcohol Use: Yes Admission [facility] Allergies/Adverse Reactions: Allergies Allergy/AdvReac Type Severity Reaction Status Date / Time No Known Allergies Allergy Verified 06/04/19 18:40 - Ebola screening Have you traveled outside of the country in the last 21 days: No Have you had contact with anyone from an Ebola affected area: No Do you have a fever: No Patient History - Patient Medical History Hx Anemia: No Hx Asthma: No Hx Chronic Obstructive Pulmonary Disease (COPD): No Hx Cancer: No Hx Cardiac Disorders: No Hx Congestive Heart Failure: No Hx Hypertension: No Hx Hypercholesterolemia: No Hx Pacemaker: No HX Cerebrovascular Accident: No Hx Seizures: No Hx Dementia: No Hx Diabetes: No Hx Gastrointestinal Disorders: No Hx Liver Disease: No Hx Genitourinary Disorders: No Hx Sexually Transmitted Disorders: No Hx Renal Disease (ESRD): No Hx Thyroid Disease: No Hx Human Immunodeficiency Virus (HIV): No (Negative 2019) Hx Hepatitis C: No Hx Depression: Yes Hx Suicide Attempt: No (Denies suicidal ideation at thi time) Hx Bipolar Disorder: No Hx Schizophrenia: Yes - Patient Surgical History Past Surgical History: No Hx Neurologic Surgery: No Hx Cataract Extraction: No Hx Cardiac Surgery: No Hx Lung Surgery: No Hx Breast Surgery: No Hx Breast Biopsy: No Hx Abdominal Surgery: No Hx Appendectomy: No Hx Cholecystectomy: No Hx Genitourinary Surgery: No Hx Section: No Hx Orthopedic Surgery: No Anesthesia Reaction: No - PPD History Previous Implant?: Yes Documented Results: Negative w/proof Implanted On Prior [facility] Admission?: Yes Date: 06/06/19 Results: 0 mm - Reproductive History Patient : No - Smoking Cessation Smoking history: Current every day smoker Have you smoked in the past 12 months: Yes Aproximately how many cigarettes per day: 2 Hx Chewing Tobacco Use: No Initiated information on smoking cessation: Yes Admission Physical Exam BHS - Vital Signs Vital Signs: Vital Signs - 24 hr 06/06/19 06/06/19 06/06/19 13:37 18:16 21:11 Temperature 98.8 F 97.5 F L 99.2 F Pulse Rate 79 83 84 Respiratory 18 18 20 Rate Blood Pressure 128/84 116/79 136/84 06/07/19 06/07/19 06/07/19 00:30 03:30 06:40 Temperature 98.1 F Pulse Rate 63 Respiratory 18 18 18 Rate Blood Pressure 136/89 06/07/19 09:14 Temperature 97.0 F L Pulse Rate 76 Respiratory 16 Rate Blood Pressure 134/89 Breathalyzer - Breathalyzer Breathalyzer: 0 Urine Drug Screen - Test Device Lot number: [id number] Expiration date: 12/22/20 - Control Is test valid?: Yes - Results Drug screen NEGATIVE: No Urine drug screen results: BZO-Benzodiazepines
[2019-06-07] MEDS: MELATONIN 5 MG TABLETS PO PRN (21:47)
[2019-06-07] MEDS: THIAMINE HCL 100 MG TABLET (FP) PO SCH (21:47)
[2019-06-08] MEDS ORDERED: chlordiazePOXIDE HCL 10 MG CAPSULE PO ONE (05:00)
--- NOTE | 2019-06-08 09:22 | DS ---
[facility] Detox Discharge Summary Admission Date: 06/04/19 Discharge Date: 06/08/19 - History Present History: Alcohol Dependence Additional Comments: 54 years old male admitted on 06/04/19 for alcohol withdrawal sx management treated with librium detox regimen patient completed librim detox regiman tolerated well alert oriented x 3 cardiac s1s2 regular rate rhythm respiratory clear lungs bilaterally on auscultation skin warm and dry - Physical Exam Results Vital Signs: Vital Signs Temperature 99.3 F 06/08/19 09:01 Pulse Rate 83 06/08/19 09:01 Respiratory Rate 18 06/08/19 09:01 Blood Pressure 145/94 06/08/19 09:01 O2 Sat by Pulse Oximetry (%) Pertinent Admission Physical Exam Findings: alcohol withdrawal Laboratory Last Values WBC 9.3 K/mm3 (4.0-10.0) 06/05/19 07:15 RBC 3.95 M/mm3 (4.00-5.60) L 06/05/19 07:15 Hgb 12.4 GM/dL (11.7-16.9) 06/05/19 07:15 Hct 38.4 % (35.4-49) D 06/05/19 07:15 MCV 97.2 fl (80-96) H 06/05/19 07:15 MCH 31.5 pg (25.7-33.7) D 06/05/19 07:15 MCHC 32.4 g/dl (32.0-35.9) 06/05/19 07:15 RDW 14.6 % (11.9-15.9) D 06/05/19 07:15 Plt Count 234 K/MM3 (134-434) 06/05/19 07:15 MPV 9.0 fl (7.5-11.1) 06/05/19 07:15 Sodium 140 mmol/L (136-145) 06/05/19 07:15 Potassium 3.5 mmol/L (3.5-5.1) 06/05/19 07:15 Chloride 104 mmol/L (98-107) 06/05/19 07:15 Carbon Dioxide 31 mmol/L (21-32) 06/05/19 07:15 Anion Gap 5 MMOL/L (8-16) L 06/05/19 07:15 BUN 15.5 mg/dL (7-18) 06/05/19 07:15 Creatinine 0.8 mg/dL (0.55-1.3) 06/05/19 07:15 Est GFR (CKD-EPI)AfAm 118.20 06/05/19 07:15 Est GFR (CKD-EPI)NonAf 101.99 06/05/19 07:15 Random Glucose 79 mg/dL (74-106) 06/05/19 07:15 Calcium 8.6 mg/dL (8.5-10.1) 06/05/19 07:15 Total Bilirubin 0.8 mg/dL (0.2-1) 06/05/19 07:15 AST 53 U/L (15-37) H 06/05/19 07:15 ALT 42 U/L (13-61) 06/05/19 07:15 Alkaline Phosphatase 99 U/L (45-117) 06/05/19 07:15 Total Protein 6.5 g/dl (6.4-8.2) 06/05/19 07:15 Albumin 3.1 g/dl (3.4-5.0) L 06/05/19 07:15 RPR Titer Nonreactive (NONREACTIVE) 06/05/19 07:15 lab noted - Treatment Hospital Course: Detox Protocol Followed, Detoxed Safely, Responded well, Discharged Condition Good, Rehab Referral Accepted Patient [facility] - Medication Discharge Medications: Ambulatory Orders NK [No Known Home Medication] 06/04/19 - Diagnosis (1) Alcohol dependence with withdrawal, unspecified Current Visit: Yes Status: Acute Qualifiers: Complication of substance-induced condition: uncomplicated Qualified Code(s ): F10.230 - Alcohol dependence with withdrawal, uncomplicated (2) Nicotine dependence Current Visit: Yes Status: Acute Qualifiers: Nicotine product type: cigarettes Substance use status: in withdrawal Qualified Code(s): F17.213 - Nicotine dependence, cigarettes, with withdrawal (3) Nicotine dependence Current Visit: Yes Status: Acute Qualifiers: Nicotine product type: cigarettes Substance use status: in withdrawal Qualified Code(s): F17.213 - Nicotine dependence, cigarettes, with withdrawal - AMA Did Patient Leave Against Medical Advice: No CIWA Score - CIWA Score Nausea/Vomitin-No Nausea/No Vomiting Muscle Tremors: None Anxiety: 2 Agitation: 0-Normal Activity Paroxysmal Sweats: No Perspiration Orientation: 0-Oriented Tacttile Disturbances: 0-None Auditory Disturbances: 0-None Visual Disturbances: 0-None Headache: 0-None Present CIWA-Ar Total Score: 2
[2019-06-08] MEDS: PRENATAL VITAMINS W/ FOLIC ACID TABLET (FP) PO SCH (10:12)
[2019-06-08] MEDS: NICOTINE 14 MG/24 HOURS TOPICAL PATCH TD SCH (10:13)
[2019-06-08 13:09] VITALS: BP 129/82; PULSE 78; TEMP 98
== END 2019-06-08 15:07 | disposition other institution (70) | DRG 897 ==
LOC: YASAS 16:40 → Y3N 21:38
PROVIDERS: ADMIT Allergy & Immunology; ATTEND Allergy & Immunology
PROC: HZ2ZZZZ Detoxification Services for Substance Abuse Treatment (ICD-10-PCS; principal; 2019-06-04)
DX: F10.230 Alcohol dependence with withdrawal, uncomplicated (principal); F17.213 Nicotine dependence, cigarettes, with withdrawal; F20.9 Schizophrenia, unspecified
CPT/HCPCS: 36415; 80053; 85027; 86593; 93005; 93010

== ENCOUNTER 2019-06-08 15:13 | Inpatient (IN) | payer OTHER ==
--- NOTE | 2019-06-08 13:42 | HP ---
[facility] Rehab Assess/Revision - Admission History [facility] - Findings Detox History & Physical reviewed: Yes Concur with findings: Yes Comments/Additional Findings: transferred from detox to rehab admission as per protocol Inpatient Rehab Admission - Rehab Decision to Admit Inpatient rehab admission?: Yes - Initial Determination Are CD services needed?: Yes Free of communicable disease: Yes Not in need of hospitalization: Yes - Rehab Admission Criteria Previous failed treatment: Yes Poor recovery environment: Yes Comorbidities: Yes Lacks judgement: Yes Patient is meeting Inpatient Rehab admission criteria:: Yes
[~2019-06-08 15:13] MED LIST: ACETAMINOPHEN 325 MG TABLET (FP) PO PRN; IBUPROFEN 400 MG TABLET (FP) PO PRN; LOPERAMIDE HCL 2 MG CAPSULE PO PRN; MAG HYDROX/AL HYDROX/SIMETH 30 ML UNIT-DOSE CUP PO PRN; MAGNESIUM CITRATE 300 ML BOTTLE PO PRN; MAGNESIUM HYDROX 2400MG/30ML ORAL SUSPENSION 30 ML CUP PO PRN; MENTHOL/PHENOL 1 EACH UD MM PRN; NICOTINE POLACRILEX 2 MG GUM BUC PRN; P-EPHED 60MG/TRIPROLIDI 2.5MG TABLET PO PRN; guaiFENesin 200 MG/10 ML 10 ML UNIT-DOSE CUPS PO PRN
[2019-06-08] MEDS: MELATONIN 5 MG TABLETS PO PRN (21:16)
[2019-06-08] MEDS: THIAMINE HCL 100 MG TABLET (FP) PO SCH (21:16)
[2019-06-09] MEDS: PRENATAL VITAMINS W/ FOLIC ACID TABLET (FP) PO SCH (10:33)
[2019-06-09] MEDS: NICOTINE 14 MG/24 HOURS TOPICAL PATCH TD SCH (10:33)
--- NOTE | 2019-06-09 11:12 | CONSULT ---
[facility] Psychiatric Consult - Data Date of interview: 06/09/19 Admission source: [facility] Identifying data: Mr Patrick Vasquez is a 54 years old single [place] male , farher of 2 children, unemployed receiving SSI, domiciled living with his son admitted from detox on 06/08/19 for inpatient rehabilitation for alcohol Substance Abuse History: Reports history of alcohol use. Refer to addiction counselor's summary for further information Medical History: Unremarkable. Smokes 2 cigarettes daily Psychiatric History: Patient is known for 4 previous admission to this facility. Most recent admission was from 06/04/19 to 06/08/19. During that admission he saw QUINCY Yi and reported that his first psychiatric contact was approximately six years ago after he was admitted to [facility] for two months after reporting auditory and visual hallucinations secondary to alcohol dependence. He reported history of seeing multiple outpatient psychiatric providers in the [place] but admits to noncompliance with medications.He could only recalls the medication zoloft although states that he has been prescribed several medications. Stated that he has history of experiencing psychotic symptoms (AH, VH) due to his alcohol abuse but has been diagnosed with schizophrenia in the past. Mr. Nguyen was discharged from [facility] on 06/03/19 and diagnosed with alcohol induced psychotic disorder with hallucinations (paperwork from [facility] reviewed by QUINCY Yi) and referred to this facility for inpatiebnt detox. When seen by QUINCY Yi on 06/05/19, he was not prescribed any medication. He denies previous suicide attempt. At present he denies auditory/visual hallucinations. No psychosis noted. Patient is still not interested in taking psychotropic medications. Mental Status Exam - Mental Status Exam Alert and Oriented to: Time, Place, Person Cognitive Function: Fair Patient Appearance: Well Groomed Mood: Hopeful, Euthymic Patient Behavior: Cooperative Speech Pattern: Clear Voice Loudness: Normal Thought Process: Intact, Goal Oriented Thought Disorder: Not Present Hallucinations: Denies Suicidal Ideation: Denies Homicidal Ideation: Denies Insight/Judgement: Fair Sleep: Poorly Appetite: Good Muscle strength/Tone: Normal Psychiatric Findings - Problem List ([place] 1, 2,3) (1) Alcohol-induced psychotic disorder with hallucinations Current Visit: No Status: Chronic Comment: History of alcohol induced psychosis (2) Schizophrenia Current Visit: Yes Status: Ruled-out (3) Alcohol-induced sleep disorder Current Visit: Yes Status: Acute (4) Alcohol dependence Current Visit: Yes Status: Acute (5) Nicotine dependence Current Visit: No Status: Chronic Qualifiers: Nicotine product type: cigarettes Substance use status: in withdrawal Qualified Code(s): F17.213 - Nicotine dependence, cigarettes, with withdrawal - Initial Treatment Plan Initial Treatment Plan: Continue inpatient rehabilitation
[2019-06-09] MEDS: MELATONIN 5 MG TABLETS PO PRN (21:18)
[2019-06-09] MEDS: THIAMINE HCL 100 MG TABLET (FP) PO SCH (21:18)
[2019-06-10] MEDS: PRENATAL VITAMINS W/ FOLIC ACID TABLET (FP) PO SCH (10:55)
[2019-06-10] MEDS: NICOTINE 14 MG/24 HOURS TOPICAL PATCH TD SCH (10:56)
[2019-06-10] MEDS: THIAMINE HCL 100 MG TABLET (FP) PO SCH (21:16)
[2019-06-10] MEDS: MELATONIN 5 MG TABLETS PO PRN (21:17)
[2019-06-11] MEDS: PRENATAL VITAMINS W/ FOLIC ACID TABLET (FP) PO SCH (10:21)
[2019-06-11] MEDS: NICOTINE 14 MG/24 HOURS TOPICAL PATCH TD SCH (12:13)
--- NOTE | 2019-06-11 14:41 | PN ---
[facility] Progress Note Note: Pt is a 54 y/o male with a hx of JACKLYN [facility] Pt was admitted to [facility] for Alcohol Induced psychotic disorder with hallucinations ,stabilized, discharged on 06/03/19 and referred here for treatment. Pt completed detox on 3 06/04/19 -06/08/19 then referred to rehab treatment on 06/08/19. PMHx:Denies. Psych Hx: Schizophrenia, alcohol induced psychotic disorder/Hallucinations. Vital Signs - 24 hr 06/11/19 06/11/19 06/11/19 00:30 03:30 07:13 Temperature 97.8 F Pulse Rate 65 Respiratory 18 18 18 Rate Blood Pressure 120/74 06/11/19 10:00 Temperature Pulse Rate 111 H Respiratory Rate Blood Pressure 115/71 Alert o x 3,denies s/h/i or hallucinations. nad oob ambulating with steady gait visible on the unit and socializing with peers/exercise walk on hallways. extremities/skin:no edema;varicose veins to left lower leg; skin dry and intact. A/P new pt to rehab s/p detox maintain safety increase po fluids meds/H/P reviewed. cont rehab.
[2019-06-11] MEDS: THIAMINE HCL 100 MG TABLET (FP) PO SCH (21:03)
[2019-06-11] MEDS: MELATONIN 5 MG TABLETS PO PRN (21:03)
[2019-06-12] MEDS: NICOTINE 14 MG/24 HOURS TOPICAL PATCH TD SCH (09:52)
[2019-06-12] MEDS: PRENATAL VITAMINS W/ FOLIC ACID TABLET (FP) PO SCH (09:52)
[2019-06-12] MEDS: THIAMINE HCL 100 MG TABLET (FP) PO SCH (21:09)
[2019-06-12] MEDS: MELATONIN 5 MG TABLETS PO PRN (21:09)
[2019-06-13] MEDS: NICOTINE 14 MG/24 HOURS TOPICAL PATCH TD SCH (09:47)
[2019-06-13] MEDS: PRENATAL VITAMINS W/ FOLIC ACID TABLET (FP) PO SCH (09:47)
[2019-06-13] MEDS: THIAMINE HCL 100 MG TABLET (FP) PO SCH (21:19)
[2019-06-13] MEDS: MELATONIN 5 MG TABLETS PO PRN (21:20)
[2019-06-14] MEDS: NICOTINE 14 MG/24 HOURS TOPICAL PATCH TD SCH (10:03)
[2019-06-14] MEDS: PRENATAL VITAMINS W/ FOLIC ACID TABLET (FP) PO SCH (10:03)
[2019-06-14] MEDS: THIAMINE HCL 100 MG TABLET (FP) PO SCH (21:15)
[2019-06-14] MEDS: MELATONIN 5 MG TABLETS PO PRN (21:15)
[2019-06-15] MEDS: NICOTINE 14 MG/24 HOURS TOPICAL PATCH TD SCH (10:26)
[2019-06-15] MEDS: PRENATAL VITAMINS W/ FOLIC ACID TABLET (FP) PO SCH (10:26)
[2019-06-15] MEDS: THIAMINE HCL 100 MG TABLET (FP) PO SCH (21:19)
[2019-06-15] MEDS: MELATONIN 5 MG TABLETS PO PRN (21:19)
[2019-06-16] MEDS: NICOTINE 14 MG/24 HOURS TOPICAL PATCH TD SCH (10:20)
[2019-06-16] MEDS: PRENATAL VITAMINS W/ FOLIC ACID TABLET (FP) PO SCH (10:20)
[2019-06-16] MEDS: MELATONIN 5 MG TABLETS PO PRN (21:21)
[2019-06-16] MEDS: THIAMINE HCL 100 MG TABLET (FP) PO SCH (21:21)
[2019-06-17] MEDS: NICOTINE 14 MG/24 HOURS TOPICAL PATCH TD SCH (10:04)
[2019-06-17] MEDS: PRENATAL VITAMINS W/ FOLIC ACID TABLET (FP) PO SCH (10:04)
[2019-06-17] MEDS: THIAMINE HCL 100 MG TABLET (FP) PO SCH (21:15)
[2019-06-17] MEDS: MELATONIN 5 MG TABLETS PO PRN (21:15)
[2019-06-18] MEDS: NICOTINE 14 MG/24 HOURS TOPICAL PATCH TD SCH (10:15)
[2019-06-18] MEDS: PRENATAL VITAMINS W/ FOLIC ACID TABLET (FP) PO SCH (10:15)
[2019-06-18] MEDS: THIAMINE HCL 100 MG TABLET (FP) PO SCH (21:10)
[2019-06-18] MEDS: MELATONIN 5 MG TABLETS PO PRN (21:10)
[2019-06-19] MEDS: PRENATAL VITAMINS W/ FOLIC ACID TABLET (FP) PO SCH (09:42)
[2019-06-19] MEDS: NICOTINE 14 MG/24 HOURS TOPICAL PATCH TD SCH (09:42)
[2019-06-19] MEDS: THIAMINE HCL 100 MG TABLET (FP) PO SCH (21:24)
[2019-06-19] MEDS: MELATONIN 5 MG TABLETS PO PRN (21:24)
[2019-06-20] MEDS: PRENATAL VITAMINS W/ FOLIC ACID TABLET (FP) PO SCH (10:17)
[2019-06-20] MEDS: NICOTINE 14 MG/24 HOURS TOPICAL PATCH TD SCH (10:18)
[2019-06-20] MEDS: THIAMINE HCL 100 MG TABLET (FP) PO SCH (21:16)
[2019-06-20] MEDS: MELATONIN 5 MG TABLETS PO PRN (21:16)
[2019-06-21] MEDS: PRENATAL VITAMINS W/ FOLIC ACID TABLET (FP) PO SCH (10:25)
[2019-06-21] MEDS: NICOTINE 14 MG/24 HOURS TOPICAL PATCH TD SCH (10:26)
--- NOTE | 2019-06-21 16:25 | DS ---
[facility] Rehab Discharge Summary - [facility] Rehab Discharge Summary Admission Date: 06/08/19 Discharge Date: 06/22/19 - History Present History: Alcohol dependence Additional Comments: Pt is a 54 y/o male with a hx of JACKLYN-alcohol admitted to rehab and requesting early discharge on 06/22/19. pt wants to leave at 7:30 A.M to catch up with his family members before they leave for work. Pt reports he has no primary care doctor but uses the ER when needed. Pt reports will seek primary care at [facility] clinic. Pertinent Past History: Denies PMHx Schizophrenia Alcohol induced Psychosis Hx. - Discharge Physical Exam Vital Signs: Vital Signs Temperature 97.6 F 06/21/19 06:56 Pulse Rate 56 L 06/21/19 06:56 Respiratory Rate 18 06/21/19 06:56 Blood Pressure 126/74 06/21/19 06:56 O2 Sat by Pulse Oximetry (%) Alert o x 3 nad oob ambulating with steady gait cardiac:s1 s2,rrr lungs:cta,[place]. abdomen:soft,+bs,nt,nd extremities,no edema,skin intact. Pertinent Admission Physical Exam Findings: Unchanged status/stable since from detox admission - Treatment Discharge Condition: Discharge condition good - Medication Discharge Medications: Ambulatory Orders NK [No Known Home Medication] 06/04/19 - Medication-Assisted Treatment (MAT) Medication-Assisted Treatment (MAT): No - Discharge Instructions Diet, activity, other medical instructions: Diet:Regular Activity: oob ad vandana Other medical instructions:f/u with CD aftercare referral as scheduled with your counselor. Follow up with primary care at [facility] outpatient clinic within 1- 2 weeks after discharge. - Diagnosis (1) Alcohol dependence Status: Chronic Qualifiers: Substance use status: uncomplicated Qualified Code(s): F10.20 - Alcohol dependence, uncomplicated (2) Nicotine dependence Status: Chronic Qualifiers: Nicotine product type: cigarettes Substance use status: in withdrawal Qualified Code(s): F17.213 - Nicotine dependence, cigarettes, with withdrawal - Follow-up Referral Minutes to complete discharge: 20 - AMA Did Patient Leave Against Medical Advice: No
[2019-06-21] MEDS: MELATONIN 5 MG TABLETS PO PRN (21:12)
[2019-06-21] MEDS: THIAMINE HCL 100 MG TABLET (FP) PO SCH (21:12)
[2019-06-22 06:49] VITALS: BP 142/92; PULSE 63; TEMP 97.5
--- NOTE | 2019-06-22 08:41 | PN ---
S Progress Note Note: Pt discharged earlier this morning as per request. Vital Signs - 24 hr 06/22/19 06/22/19 06/22/19 00:30 03:30 06:49 Temperature 97.5 F L Pulse Rate 63 Respiratory 18 16 16 Rate Blood Pressure 142/92 As per nurses note, pt escorted off unit about 7:30 A:M.
== END 2019-06-22 06:55 | disposition home or self-care (01) | DRG 895 ==
LOC: YASAS 15:13 → Y5N 15:14
PROVIDERS: ADMIT Neuromusculoskeletal Medicine & OMM; ATTEND Neuromusculoskeletal Medicine & OMM
PROC: HZ42ZZZ Group Counseling for Substance Abuse Treatment, Cognitive-Behavioral (ICD-10-PCS; principal; 2019-06-08)
DX: F10.20 Alcohol dependence, uncomplicated (principal); F17.213 Nicotine dependence, cigarettes, with withdrawal; F10.251 Alcohol dependence with alcohol-induced psychotic disorder with hallucinations; F10.282 Alcohol dependence with alcohol-induced sleep disorder; F20.9 Schizophrenia, unspecified